=== PATIENT | female | born 1990 | race Caucasian/White ===

== ENCOUNTER 2017-12-08 21:19 | Emergency (ER) | payer MEDICAID ==
[~2017-12-08] VITALS: Ht 167.6 cm; Wt 70.0 kg
[~2017-12-08 21:19] MED LIST: NITR100C6 PO; ONDA8TAB9 PO
[2017-12-08 21:28] VITALS: BP 147/96
[2017-12-08] MEDS ORDERED: ketorolac trometh inj. 60 MG/2 ML VIAL IM ONE (22:00)
[2017-12-08] MEDS ORDERED: diazepam 5mg tablet PO ONE (22:00)
== END 2017-12-08 22:17 | disposition home or self-care (01) ==
LOC: ER 21:20
DX: M54.40 Lumbago with sciatica, unspecified side (principal); M79.604 Pain in right leg; G89.29 Other chronic pain; Z87.442 Personal history of urinary calculi; Z88.0 Allergy status to penicillin; Z79.899 Other long term (current) drug therapy
CPT/HCPCS: 96372; 99283; J1885